=== PATIENT | male | born 2000 | race African-American/Black ===

== ENCOUNTER 2022-05-04 09:35 | Emergency (ER) | payer BC, SELFPAY ==
--- NOTE | ~2022-05-04 | XR_ITS ---
EXAMINATION: XR ankle LT min 3V DATE: 05/04/2022 10:00 INDICATION: Left ankle pain TECHNIQUE: Anteroposterior, lateral, mortise, and additional oblique view of the ankle were obtained. COMPARISON: None. FINDINGS: There is soft tissue swelling of ankle. Bone alignment is normal. There is no fracture. The ankle mortise is intact. IMPRESSION: 1. Soft tissue swelling without acute osseous abnormality. Reviewed, dictated and finalized at location [facility]
--- NOTE | 2022-05-04 09:37 | ED.LOWEXIN ---
HPI - Extremity Injury (Lower) General Chief Complaint: Extremity Injury, Lower Stated Complaint: INJURED L ANKLE Time Seen by Provider: 05/04/22 09:37 Source: patient and RN notes reviewed History of Present Illness HPI Narrative: Patient is a 21-year-old male who presents to urgent care with complaints of left ankle pain and swelling. Patient states that he fell on it last night while playing basketball. States that he has used ibuprofen, ice and elevated the foot. No other acute complaints or injuries. No acute distress noted. Patient aware of the plan of care. Some parts of this dictation were generated by voice recognition software and may contain typographical and/or grammatical inaccuracies. Related Data Home Medications Medication Instructions Recorded Confirmed No Home Medications 05/04/22 05/04/22 Allergies Allergy/AdvReac Type Severity Reaction Status Date / Time No Known Allergies Allergy Verified 05/04/22 09:55 Review of Systems Review of Systems: CONSTITUTIONAL: Denies fever, chills, or sweats. EYES: Denies visual changes, redness, or discharge. ENT: Denies rhinorrhea, congestion, sore throat, or otalgia. CARDIOVASCULAR: Denies chest pain, palpitations, or edema. RESPIRATORY: Denies cough or dyspnea. GASTROINTESTINAL: Denies abdominal pain, nausea, vomiting, or diarrhea. GENITOURINARY: Denies dysuria or hematuria. SKIN: Denies rash or itching. MUSCULOSKELETAL: Reports of left ankle pain and swelling NEUROLOGIC: Denies headache, numbness, or weakness. All other systems reviewed are negative, except as documented in HPI. PMFSH Comments At the time of my signature, I reviewed and agree with the nursing past medical, surgical, social, and family history. There is no relevant family history pertinent to the patient complaint. Exam Narrative: GENERAL: This is a well-nourished, well-developed patient, in no apparent distress. HEAD: normocephalic, atraumatic. EYES: PERRL. Sclera clear/white. Vision is grossly intact. EARS: External ears normal NOSE: External nose normal with no obvious nasal discharge, nares without redness, no rhinorrhea. THROAT: Mucous membranes moist SKIN: warm, intact with no suspicious lesions or rash, good texture and turgor. NEURO: awake, alert, and oriented to person, place and time. There were no obvious focal neurologic abnormalities. EXTREMITIES: Moderate edema to the lateral left malleolus with moderate exacerbated pain on weight-bearing and flexion. Positive strong left pedal pulse with capillary refill less than 2 seconds. Range of motion limited due to pain. Course Course Level of Care: Express Care Visit Vital Signs Vital signs: Vital Signs Temperature 98.1 F 05/04/22 09:52 Pulse Rate 61 05/04/22 09:52 Respiratory Rate 16 05/04/22 09:52 Blood Pressure 149/102 H 05/04/22 09:52 Pulse Oximetry 100 05/04/22 09:52 Oxygen Delivery Room Air 05/04/22 09:52 Temperature 98.1 F 05/04/22 09:52 Pulse Rate 61 05/04/22 09:52 Respiratory Rate 16 05/04/22 09:52 Blood Pressure 149/102 H 05/04/22 09:52 Pulse Oximetry 100 05/04/22 09:52 Oxygen Delivery Room Air 05/04/22 09:52 Reviewed- Patient is informed that they may have pre-hypertension or hypertension based on a blood pressure reading in the department. I recommend the patient call the primary care provider listed on their discharge instructions or a physician of their choice this week to arrange follow-up for further evaluation of possible pre-hypertension or hypertension. MDM - Extremity Injury (Lower) MDM Narrative Medical decision making narrative: Reviewed x-ray results with the patient. He is aware that x-ray is negative for any fracture or deformity. There is only soft tissue swelling noted. Symptoms and results are consistent with a sprain. Advised patient to wear the Marshal wrap as directed for any swelling or discomfort. Wear the Marshal wrap until pain and swelling have resol
[2022-05-04 09:52] VITALS: BP 149/102; PULSE 61; RESP 16; TEMP 36.7; O2SAT 100
== END 2022-05-04 10:22 | disposition home or self-care (01) ==
PROVIDERS: Emergency Provider Nurse Practitioner Family
DX: S93.402A Sprain of unspecified ligament of left ankle, initial encounter (principal); S96.912A Strain of unspecified muscle and tendon at ankle and foot level, left foot, initial encounter; W19.XXXA Unspecified fall, initial encounter; Y93.67 Activity, basketball
CPT/HCPCS: 73610; 99213; G0463